=== PATIENT | female | born 1985 | race Caucasian/White ===

== ENCOUNTER 2017-10-13 10:23 | Emergency (ER) | payer OTHER ==
[~2017-10-13] VITALS: Ht 165.1 cm; Wt 68.0 kg
--- NOTE | 2017-10-13 11:45 | ED GI/GU/ABDOMINAL COMPLAINT ---
History of Present Illness General Chief Complaint: Nausea, Vomiting, Diarrhea Stated Complaint: +N,+D, SEEN BY URGENT CARE,ANTIBIOTICS NOT WOKRING Source: patient Exam Limitations: no limitations Vital Signs & Intake/Output Vital Signs & Intake/Output Vital Signs Date Time Temp Pulse Resp B/P B/P Pulse O2 O2 Flow FiO2 Mean Ox Delivery Rate 10/13 1125 Room Air 10/13 1034 97.9 85 18 124/83 98 Room Air Allergies Coded Allergies: Penicillins (RASH 10/13/17) Reconcile Medications Levothyroxine Sodium 137 MCG TABLET 1 TAB PO DAILY AC THYROID (Reported) Triage Note: PT STATSE SHE HAS BEEN HAVING STOMACH PROBLEMS MOSTLY DIARRHEA FOR A WEEK. PT WENT TO WALK IN AND WAS GIVEN ABX AZYTHROMICIN. PT STATES SHE HAD DIARRHEA 6 TIMES LAST NIGHT. PT WAS IN [place] UNTIL THE . DIARRHEA BEGAN 5 DAYS LATER. Triage Nurses Notes Reviewed? yes ? n Is pt currently ? No HPI: 32-year-old white female who presents with watery diarrhea after returning from [place] approximately 10 days ago which improved after taking Imodium but then recurred. Patient went to an urgent care center where she was prescribed azithromycin with return of the watery diarrhea. She denies any fever, melena, hematemesis, abdominal pain, dizziness, headache, chest pain, shortness of breath, or any other symptoms. Past History Travel History Traveled to [place] past 21 day Yes Medical History Any Pertinent Medical History? none Endocrine: hypothyroidism Surgical History Surgical History: none Psychosocial History What is your primary language Pashto Tobacco Use: Never used ETOH Use: denies use Illicit Drug Use: denies illicit drug use Family History Hx Contributory? No Review of Systems Review of Systems Constitutional: Reports: no symptoms. All Other Systems: Reviewed and Negative Physical Exam Physical Exam Gastrointestinal: normal bowel sounds, soft, non-tender, no organomegaly Core Measures ACS in differential dx? No Sepsis Present: No Sepsis Focused Exam Completed? No Progress Differential Diagnosis: colitis, antibiotic adverse reaction, viral syndrome, dehydration Plan of Care: Orders Procedure Date/time Status LACTIC ACID 10/13 1418 Active CULTURE,STOOL 10/13 1119 Active OVA AND PARASITE ANTIGENS 10/13 1119 Active C.DIFFICILE 10/13 1119 Active URINALYSIS 10/13 1118 Active LIPASE 10/13 1118 Active LACTIC ACID 10/13 1118 Active COMPREHENSIVE METABOLIC PANEL 09/07 1118 Active CBC WITHOUT DIFFERENTIAL 10/13 1117 Active Current Medications Sig/Luis Start time Last Medication Dose Stop Time Status Admin Sodium Chloride 1,000 ML BOLUS ONE 10/13 1130 AC (Normal Saline 0.9%) 10/13 1229 Microbiology 10/13 111 STOOL: Cryptosporidium Antigen - ORD 10/13 111 STOOL: Giardia Antigen (ARNULFO) - ORD 10/13 111 STOOL: Clostridium difficile Toxin A & B - ORD 10/13 111 STOOL: Stool Culture - ORD Initial ED EKG: none Departure Departure Time of Disposition: 1147 Disposition: HOME OR SELF CARE Condition: Stable Clinical Impression Primary Impression: Acute diarrhea Referrals: Patient Has No Primary Care Dr (PCP/Family) Additional Instructions: Please avoid use of all lactose-containing foods. Return here if increasing diarrhea, blood in stool, abdominal pain, fever, vomiting, or any worsening symptoms. Please follow-up with a mechanics handyman if symptoms are not improved within the next 3-5 days. Take Imodium [id number] as directed. Departure Forms: Customer Survey General Discharge Information
[2017-10-13] MEDS ORDERED: LEVOTHYROXINE137 MCG PO (11:59)
== END 2017-10-13 11:47 ==
LOC: ERH 10:23
DX: R19.7 Diarrhea, unspecified (principal); E03.9 Hypothyroidism, unspecified
CPT/HCPCS: 87015; 87045; 87328; 87329; 87899; 87899-59